=== PATIENT | female | born 1940 | race Caucasian/White ===

== ENCOUNTER 2023-03-03 10:08 | Emergency (ER) | payer OTHER ==
[~2023-03-03] VITALS: Ht 157.5 cm; Wt 88.5 kg
[2023-03-03 10:39] LABS: HEMATOCRIT 35.1 % (31.2-41.9); MEAN CORPUSCULAR HEMOGLOBIN 29.8 uug (24.7-32.8); MEAN CORPUSCULAR VOLUME 89.8 fL (75.5-95.3); PLATELET COUNT (AUTO) 172 K/uL (179-408)
[2023-03-03] MEDS ORDERED: AMLO2.5T2 PO (10:50)
[2023-03-03] MEDS ORDERED: ATOR10TA PO (10:50)
[2023-03-03 10:58] LABS: CARBON DIOXIDE 28 mmol/L (21-32); CHLORIDE 103 mmol/L (98-107); CREATININE 1.5 mg/dL (0.6-1.3); GLUCOSE 173 mg/dL (74-106); UREA NITROGEN, BLOOD 29 mg/dL (7-18)
[2023-03-03 11:07] LABS: ALANINE AMINOTRANSFERASE 22 U/L (14-59); ALKALINE PHOSPHATASE 41 U/L (50-136); ASPARTATE AMINOTRANSFERASE 9 U/L (15-37); BILIRUBIN,DIRECT 0.2 mg/dL (0.0-0.2); BILIRUBIN,TOTAL 0.8 mg/dL (0.2-1.0)
[2023-03-03] MEDS ORDERED: IV NORMAL SALINE 500 ML BAG IV ONE (11:15)
--- NOTE | 2023-03-03 11:58 | NUR ---
Pt is hard IV stick. Mid-line nurse called.
[2023-03-03] MEDS ORDERED: ACETAMINOPHEN 325 MG TABLET PO ONE (12:45)
--- NOTE | 2023-03-03 13:00 | NUR ---
Placed pt on pur-wick for urine collection.
[2023-03-03] MEDS ORDERED: ACETAMINOPHEN 325 MG TABLET ONE (13:58)
--- NOTE | 2023-03-03 16:10 | NUR ---
[facility] called: Pt accepted by Dr. Toya Hammer to [facility] room #[id number] Pick-up ETA: [id number] [facility] Report to:
--- NOTE | 2023-03-03 16:33 | NUR ---
Called report to CHRISTOPHER Deng at [facility]
[2023-03-03 17:19] LABS: *BILIRUBIN,URIN NEGATIVE (NEGATIVE); *BLOOD, URINE 2+ (NEGATIVE); *CLARITY,URINE SLIGHTLY CLOUDY (CLEAR); *COLOR,URINE YELLOW (YELLOW); *KETONES,URINE NEGATIVE (NEGATIVE); *UROBILINOGEN,URINE 0.2 E.U./dl (NORMAL); LEUKOCYTE ESTERASE ,URINE 1+ (NEGATIVE); NITRITE, URINE NEGATIVE (NEGATIVE); UGLUCOSE NEGATIVE (NEGATIVE)
--- NOTE | 2023-03-03 17:35 | NUR ---
Gave EMT's report, pt chart, CD, and transfer papers. Pt was transported. Pt's daughter translated, will meet video library assistant at [facility] -- .
[2023-03-03 20:32] LABS: BACTERIA,URINE FEW /HPF (NONE SEEN)
== END 2023-03-03 17:40 | disposition short-term general hospital (02) ==
LOC: EDBD 10:08 → ER 10:08
DX: U07.1 COVID-19 (principal); R53.1 Weakness; R62.7 Adult failure to thrive; R07.89 Other chest pain; I10 Essential (primary) hypertension; E78.5 Hyperlipidemia, unspecified; Z68.35 Body mass index [BMI] 35.0-35.9, adult; Z88.5 Allergy status to narcotic agent; Z79.899 Other long term (current) drug therapy
CPT/HCPCS: 99285; 96360; 71045; 87426; 80076; 80048; 81001; 85025; 85730; 86850; 86900; 86901; 84484; 36415; 93005; J7040; A4663; C1758

== ENCOUNTER 2024-11-07 20:50 | Emergency (ER) | payer OTHER ==
[~2024-11-07] VITALS: Ht 157.5 cm; Wt 88.5 kg
[~2024-11-07 20:50] MED LIST: AMLO2.5T2 PO; ATOR10TA PO
[2024-11-07] MEDS: ONDANSETRON 4 MG/2 ML VIAL IV ONE (21:50)
[2024-11-07] MEDS ORDERED: ONDANSETRON 4 MG/2 ML VIAL ONE (21:54)
[2024-11-07] MEDS: IV NORMAL SALINE 1000 ML BAG IV ONE (22:00)
[2024-11-07] MEDS ORDERED: SIMV10TA98 PO (22:01)
[2024-11-07] MEDS ORDERED: AMLO10TA59 PO (22:01)
[2024-11-07] MEDS ORDERED: ATEN50TA PO (22:01)
[2024-11-07] MEDS ORDERED: LOSA25TA27 PO (22:01)
[2024-11-07 22:14] LABS: BASOPHILS % (AUTO) 0.3 % (0.0-2.0); HEMATOCRIT 41.8 % (31.2-41.9); HEMOGLOBIN 14.1 g/dL (10.9-14.3); LYMPHOCYTES % (AUTO) 9.3 % (20.5-51.5); MEAN CORPUSCULAR HEMOGLOBIN 30.7 uug (24.7-32.8); MEAN CORPUSCULAR HGB CONC 34 g/dL (32.3-35.6); MEAN CORPUSCULAR VOLUME 91.3 fL (75.5-95.3); MONOCYTES # (AUTO) 0.7 K/uL (0.1-1.30); MONOCYTES % (AUTO) 6.7 % (0.0-11.0); NEUTROPHILS # (AUTO) 9.2 K/uL (1.8-8.9); NEUTROPHILS % (AUTO) 83.7 % (38.5-71.5); PLATELET COUNT (AUTO) 182 K/uL (179-408); RED BLOOD CELL COUNT(AUTO) 4.58 MIL/uL (3.63-4.92)
[2024-11-07 22:34] LABS: ALANINE AMINOTRANSFERASE 13 U/L (14-59); ALBUMIN 3.6 g/dL (3.4-5.0); ALKALINE PHOSPHATASE 56 U/L (50-136); ASPARTATE AMINOTRANSFERASE 18 U/L (15-37); BILIRUBIN,DIRECT 0.2 mg/dL (0.0-0.2); BILIRUBIN,TOTAL 0.8 mg/dL (0.2-1.0); CALCIUM 9.3 mg/dL (8.5-10.1); CARBON DIOXIDE 27 mmol/L (21-32); CHLORIDE 100 mmol/L (98-107); CREATININE 1.2 mg/dL (0.6-1.3); GLUCOSE 172 mg/dL (74-106); SODIUM SERUM 139 mmol/L (136-145); TOTAL PROTEIN, SERUM 8.1 g/dL (6.4-8.2); UREA NITROGEN, BLOOD 17 mg/dL (7-18)
[2024-11-07 22:38] LABS: THYROID STIMULATING HORMONE 1.187 mIU/mL (0.358-3.740)
[2024-11-07 23:23] LABS: *BILIRUBIN,URIN NEGATIVE (NEGATIVE); *BLOOD, URINE 1+ (NEGATIVE); *CLARITY,URINE SLIGHTLY CLOUDY (CLEAR); *COLOR,URINE YELLOW (YELLOW); *KETONES,URINE 1+ (NEGATIVE); *UROBILINOGEN,URINE 0.2 E.U./dl (NORMAL); LEUKOCYTE ESTERASE ,URINE TRACE (NEGATIVE); NITRITE, URINE NEGATIVE (NEGATIVE); PH,URINE 6.5 (5.0-8.0); UGLUCOSE NEGATIVE (NEGATIVE)
[2024-11-07 23:30] LABS: *PROTEIN,URINE 3+ (NEGATIVE)
[2024-11-07 23:41] LABS: BACTERIA,URINE MANY /HPF (NONE SEEN); SQUAMOUS EPITHELIAL CELL,UR FEW /HPF (NONE SEEN); YEAST,URINE MODERATE /HPF (NONE SEEN)
[2024-11-07 23:42] LABS: MUCUS,URINE FEW /LPF (0-FEW)
[2024-11-08] MEDS: CEFEPIME HCL 2 G in IV DEXTROSE 5% 100 ML IV ONE
[2024-11-08] MEDS ORDERED: CEFEPIME HCL 1 G VIAL ONE (01:28)
[2024-11-08 05:00] VITALS: O2SAT 98
== END 2024-11-08 07:07 | disposition short-term general hospital (02) ==
LOC: ER 20:52
DX: R53.1 Weakness (principal); N39.0 Urinary tract infection, site not specified; R00.0 Tachycardia, unspecified; R07.9 Chest pain, unspecified; R11.2 Nausea with vomiting, unspecified; R40.4 Transient alteration of awareness; E78.5 Hyperlipidemia, unspecified; F03.90 Unspecified dementia, unspecified severity, without behavioral disturbance, psychotic disturbance, mood disturbance, and anxiety; I11.9 Hypertensive heart disease without heart failure; I70.90 Unspecified atherosclerosis; Z79.899 Other long term (current) drug therapy; Z87.440 Personal history of urinary (tract) infections; Z88.5 Allergy status to narcotic agent; Z20.822 Contact with and (suspected) exposure to COVID-19; W06.XXXA Fall from bed, initial encounter; Y93.9 Activity, unspecified; Y92.89 Other specified places as the place of occurrence of the external cause; Y99.8 Other external cause status
CPT/HCPCS: 99285; 70450; 71045; 96361; 96375; 80076; 80048; 81001; 83735; 84443; 85025; 85730; 86140; 87040 ×2; 84484; 36415; 72131; 72192; 93005; 83605; 96365; 87426; J2405; J7040; J0692; A4606; A4663; C1758